=== PATIENT | female | born 1980 | race Caucasian/White ===

== ENCOUNTER → 2018-03-03 09:36 | Day surgery (SDC) | payer OTHER ==
[~2018-03-03 09:36] MED LIST: Buffered Lidocaine 0.9% SYRIN* 5 ML/SYR SYRINGE INTRADERM ONE; Buffered Lidocaine 0.9% SYRIN* 5 ML/SYR SYRINGE ONE; Bupivacaine 0.5%* 50 ML VIAL ONE; DOXYcycline IV* 100 MG in NS 0.9% 250 ML* 250 ML IVPB ONE; Dexamethasone IV* 4 MG/ML 1 ML (4 MG) ONE; Famotidine TAB* 20 MG ONE; Famotidine TAB* 20 MG PO ONE; Ketorolac INJ* 30 MG/ML 1 ML VIAL ONE; Lidocaine 1% INJ* 10 MG/ML 30 ML SDV ONE; Lidocaine 2% PF * 5 ML VIAL ONE; Metoclopramide TAB* 10 MG ONE; Metoclopramide TAB* 10 MG PO ONE; Midazolam* 1 MG/ML 5 ML VIAL (5 MG) ONE; Misoprostol TAB* 200 MCG ONE; Naloxone* 0.4 MG/ML 1 ML VIAL IV PRN; Ondansetron INJ* 2 MG/ML VIAL IV PRN; Ondansetron INJ* 2 MG/ML VIAL ONE; Propofol* 10 MG/ML 20 ML BTL IV PUSH ONE; fentaNYL* 50 MCG/ML 2 ML VIAL (100 MCG VIAL) IV PRN; fentaNYL* 50 MCG/ML 2 ML VIAL (100 MCG VIAL) ONE; oxyCODONE/Acetamin 5/325 MG* TAB PO PRN
[2018-03-03 12:04] LABS: ABS Basophils 0 10^3/ul (0-0.2); ABS Eosinophils 0 10^3/ul (0-0.6); ABS Lymphocytes 1.4 10^3/ul (1.0-4.8); ABS Monocytes 0.3 10^3/ul (0-0.8); ABS Nucleated RBC 0 10^3/ul; Eosinophil % 0.7 % (0-6); Hematocrit 35 % (35-47); Hemoglobin 12.6 g/dl (12.0-16.0); Lymphocyte % 24.1 % (25-47); Mean Corpuscular HGB Conc 36 g/dl (31-36); Mean Corpuscular Hemoglobin 33 pg (27-31); Mean Corpuscular Volume 94 fL (80-97); Mean Platelet Volume 8.1 um3 (7.4-10.4); Nucleated Red Blood Cells % 0; Platelet Count 137 10^3/ul (150-450); Red Blood Count 3.76 10^6/ul (4.0-5.4); Red Cell Distribution Width 13 % (10.5-15); White Blood Count 5.8 10^3/ul (3.5-10.8)
[2018-03-03 13:49] VITALS: BP 112/76
--- NOTE | 2018-03-03 22:57 | OP ---
DATE OF OPERATION: 03/03/18 - [facility] DATE OF : 82 SURGEON: Muriel Jefferson MD MANAGER PRINT: None. PRE-OP DIAGNOSIS: Missed at 9 weeks size. POST-OP DIAGNOSIS: Missed at 9 weeks size. OPERATIVE PROCEDURE: Suction, dilation and curettage. ESTIMATED BLOOD LOSS: Minimal. FLUIDS: Crystalloid. DRAINS: None. SPECIMEN: Products of conception. DESCRIPTION OF PROCEDURE: After informed consent was signed, the patient was taken to the operating room where she was given general anesthesia that was found to be adequate. She was prepped and draped in the dorsal lithotomy position in a candy cane stirrups. Her bladder had previously been drained of urine just prior to arriving in the OR. Two speculums were placed into the vagina to expose the cervix and the anterior lip of the cervix was grasped with a single-tooth tenaculum. The uterus was sounded to 9 cm and the cervix was gradually dilated until a size 10 curved suction cannula could be inserted. The suction device was assembled and turned on. The uterine contents were suctioned until the cavity decreased in size and a gritty texture was felt in all quadrants. The suction was then removed. There was minimal amount of bleeding. The patient was given 400 mcg of Cytotec and with bimanual massage, the uterus was firm and there was scant bleeding. The tenaculum was removed with good hemostasis and the speculums were removed. The patient was placed back into supine position, moved to the stretcher, and taken to the recovery room in stable condition. [id number]/CPS #: [id number] MTDD
== END | disposition home or self-care (01) ==
LOC: OR 09:36
PROVIDERS: ATTEND Obstetrics & Gynecology
DX: O02.1 Missed abortion (principal); F41.9 Anxiety disorder, unspecified; G43.909 Migraine, unspecified, not intractable, without status migrainosus
CPT/HCPCS: 36415; 85025; 86850; 86900; 86901; 88233; 88262; 88291; 88305; A9270-GY; J1100; J1885; J2250; J2405; J2704; J3010

== ENCOUNTER 2018-05-25 15:29 | Emergency (ER) | payer OTHER ==
[2018-05-25 16:31] LABS: ABS Basophils 0 10^3/ul (0-0.2); ABS Eosinophils 0.1 10^3/ul (0-0.6); ABS Monocytes 0.4 10^3/ul (0-0.8); ABS Neutrophils 5.6 10^3/ul (1.5-7.7); ABS Nucleated RBC 0 10^3/ul; Eosinophil % 1.1 % (0-6); Hematocrit 40 % (35-47); Hemoglobin 13.9 g/dl (12.0-16.0); Mean Corpuscular HGB Conc 35 g/dl (31-36); Mean Corpuscular Hemoglobin 33 pg (27-31); Mean Corpuscular Volume 95 fL (80-97); Mean Platelet Volume 8.6 um3 (7.4-10.4); Nucleated Red Blood Cells % 0; Platelet Count 195 10^3/ul (150-450); Red Blood Count 4.15 10^6/ul (4.00-5.40); Red Cell Distribution Width 12 % (10.5-15); White Blood Count 8.1 10^3/ul (3.5-10.8)
[2018-05-25 16:46] LABS: INR 0.9 (0.77-1.02)
[2018-05-25 16:47] LABS: EGFR Non-African American 96.3 (>60)
[2018-05-25 19:29] LABS: Urine Appearance Cloudy; Urine Blood 2+ (Negative); Urine Color Amber; Urine Ketones Trace (Negative); Urine Protein 2+(100 mg/dL) (Negative); Urine Red Blood Cell 3+(>10/hpf) (Absent); Urine Urobilinogen Negative (Negative); Urine White Blood Cell 3+(>20/hpf) (Absent)
--- NOTE | 2018-05-25 19:48 | ED ---
GI/ HPI - HPI Summary HPI Summary: Complains of heavy bright red vaginal bleeding with clots, bilateral lower abdominal cramping, increased urinary urge starting today. LMP 14 days ago. Patient started spotting 2 days after menstrual bleeding stopped, and spotting is progressed until heavy bleeding with clots started today. Denies fever, cough, sore throat, CP, SOB, N/V/D, vaginal discharge or pain, change in BM. Medical history is none. Abdominal/pelvic surgical history is none. Patient denies sexual activity since D&C 2 months ago. No control. Followed by [facility]. - History of Current Complaint Chief Complaint: EDVaginalBleeding Time Seen by Provider: 05/25/18 18:14 Stated Complaint: HEAVY VAGINAL BLEEDING Hx Obtained From: Patient Onset/Duration: Started Hours Ago, Started Days Ago Timing: Intermittent Severity: Mild Current Severity: Mild Vaginal Bleeding Description: Bright Red Pain Intensity: 2 Location of Pain: RLQ, LLQ, Suprapubic Pain Characteristics: Cramping Associated Signs and Symptoms: Positive: Abdominal Pain Additional Signs & Symptoms: Positive: Vaginal Bleeding, Miscarriage Aggravating Factor(s): Nothing Alleviating Factor(s): Nothing - Allergy/Home Medications Allergies/Adverse Reactions: Allergies Allergy/AdvReac Type Severity Reaction Status Date / Time No Known Allergies Allergy Verified 03/03/18 09:51 PMH/Surg Hx/FS Hx/Imm Hx Endocrine/Hematology History: Denies: Hx Anticoagulant Therapy, Hx Diabetes Cardiovascular History: Denies: Hx Cardiac Arrest, Hx Hypertension, Hx Pacemaker/ICD History: Denies: Hx Dialysis, Hx Renal Disease Sensory History: Denies: Hx Contacts or Glasses, Hx Hearing Aid Opthamlomology History: Denies: Hx Contacts or Glasses Neurological History: Reports: Hx Migraine - 3-4 PER YEAR- TX WITH EXCEDRIN Psychiatric History: Reports: Hx Anxiety - REPORTS SOME Denies: Hx Panic Disorder - Surgical History Surgery Procedure, Year, and Place: WISDOM TEETH EXTRACTION PATIENT STATES WITH GENERAL ANESTHESIA Hx Anesthesia Reactions: No - Immunization History Immunizations Up to Date: Yes Infectious Disease History: No Infectious Disease History: Denies: Traveled Outside the [place] in Last 30 Days - Social History Alcohol Use: Occasionally Substance Use Type: Reports: None Smoking Status (MU): Never Smoked Tobacco Review of Systems Constitutional: Negative Eyes: Negative ENT: Negative Cardiovascular: Negative Respiratory: Negative Positive: Abdominal Pain Positive: urgency, other Musculoskeletal: Negative Skin: Negative Neurological: Negative Psychological: Normal All Other Systems Reviewed And Are Negative: Yes Physical Exam Triage Information Reviewed: Yes Vital Signs On Initial Exam: Initial Vitals Temp Pulse Resp BP Pulse Ox 97.6 F 78 17 150/69 100 05/25/18 15:30 05/25/18 15:30 05/25/18 15:30 05/25/18 15:30 05/25/18 15:30 Vital Signs Reviewed: Yes Appearance: Positive: Well-Appearing Skin: Positive: Warm Head/Face: Positive: Normal Head/Face Inspection Eyes: Positive: Normal Neck: Positive: Supple Respiratory/Lung Sounds: Positive: Clear to Auscultation Cardiovascular: Positive: Normal Abdomen Description: Positive: Nontender Musculoskeletal: Positive: Normal Neurological: Positive: Normal Psychiatric: Positive: Normal AVPU Assessment: Alert - Alexi Coma Scale Best Eye Response: 4 - Spontaneous Best Motor Response: 6 - Obeys Commands Best Verbal Response: 5 - Oriented Coma Scale Total: 15 Diagnostics - Vital Signs Vital Signs Temp Pulse Resp BP Pulse Ox 05/25/18 15:30 97.6 F 78 17 150/69 100 - Laboratory Lab Results: Lab Results 05/25/18 05/25/18 05/25/18 Range/Units 16:18 16:18 16:18 WBC 8.1 (3.5-10.8) 10^3/ul RBC 4.15 (4.00-5.40) 10^6/ul Hgb 13.9 (12.0-16.0) g/dl Hct 40 (35-47) % MCV 95 (80-97) fL MCH 33 H (27-31) pg MCHC 35 (31-36) g/dl RDW 12 (10.5-15) % Plt Count 195 (150-450) 10^3/ul MPV 8.6 (7.4-10.4) um3 Neut % (Auto) 68.7 (38-83) % Lymph % (Auto) 25.0 (25-47) % Dunn % (Auto) 4.8 (0-7) % Eos % (Auto) 1.1 (0-6) % Baso % (Auto) 0.4 (0-2) % Absolute Neuts (auto) 5.6 (1.5-7.7) 10^3/ul Absolute Lymphs (auto) 2.0 (1.0-4.8) 10^3/ul Absolute Monos (auto) 0.4 (0-0.8) 10^3/ul Absolute Eos (auto) 0.1 (0-0.6) 10^3/ul Absolute Basos (auto) 0 (0-0.2) 10^3/ul Absolute Nucleated RBC 0 10^3/ul Nucleated RBC % 0 INR (Anticoag Therapy) 0.90 (0.77-1.02) APTT 32.1 (26.0-36.3) seconds Sodium 140 (135-145) mmol/L Potassium 3.7 (3.5-5.0) mmol/L Chloride 104 (101-111) mmol/L Carbon Dioxide 30 (22-32) mmol/L Anion Gap 6 (2-11) mmol/L BUN 8 (6-24) mg/dL Creatinine 0.69 (0.51-0.95) mg/dL Est GFR ( Amer) 116.5 (>60) Est GFR (Non-Af Amer) 96.3 (>60) BUN/Creatinine Ratio 11.6 (8-20) Glucose 98 (70-100) mg/dL Lactic Acid (0.5-2.0) mmol/L Calcium 9.3 (8.6-10.3) mg/dL Total Bilirubin 0.50 (0.2-1.0) mg/dL AST 17 (13-39) U/L ALT 28 (7-52) U/L Alkaline Phosphatase 68 (34-104) U/L Total Protein 6.8 (6.4-8.9) g/dL Albumin 4.5 (3.2-5.2) g/dL Globulin 2.3 (2-4) g/dL Albumin/Globulin Ratio 2.0 (1-3) Beta HCG, Quant 1.43 mIU/mL Urine Color Urine Appearance Urine pH (5-9) Ur Specific [place] (1.010-1.030) Urine Protein (Negative) Urine Ketones (Negative) Urine Blood (Negative) Urine Nitrate (Negative) Urine Bilirubin (Negative) Urine Urobilinogen (Negative) Ur Leukocyte Esterase (Negative) Urine WBC (Auto) (Absent) Urine RBC (Auto) (Absent) Urine Bacteria (Absent) Urine Glucose (Negative) 05/25/18 05/25/18 Range/Units 16:18 18:45 WBC (3.5-10.8) 10^3/ul RBC (4.00-5.40) 10^6/ul Hgb (12.0-16.0) g/dl Hct (35-47) % MCV (80-97) fL MCH (27-31) pg MCHC (31-36) g/dl RDW (10.5-15) % Plt Count (150-450) 10^3/ul MPV (7.4-10.4) um3 Neut % (Auto) (38-83) % Lymph % (Auto) (25-47) % Dunn % (Auto) (0-7) % Eos % (Auto) (0-6) % Baso % (Auto) (0-2) % Absolute Neuts (auto) (1.5-7.7) 10^3/ul Absolute Lymphs (auto) (1.0-4.8) 10^3/ul Absolute Monos (auto) (0-0.8) 10^3/ul Absolute Eos (auto) (0-0.6) 10^3/ul Absolute Basos (auto) (0-0.2) 10^3/ul Absolute Nucleated RBC 10^3/ul Nucleated RBC % INR (Anticoag Therapy) (0.77-1.02) APTT (26.0-36.3) seconds Sodium (135-145) mmol/L Potassium (3.5-5.0) mmol/L Chloride (101-111) mmol/L Carbon Dioxide (22-32) mmol/L Anion Gap (2-11) mmol/L BUN (6-24) mg/dL Creatinine (0.51-0.95) mg/dL Est GFR ( Amer) (>60) Est GFR (Non-Af Amer) (>60) BUN/Creatinine Ratio (8-20) Glucose (70-100) mg/dL Lactic Acid 1.1 (0.5-2.0) mmol/L Calcium (8.6-10.3) mg/dL Total Bilirubin (0.2-1.0) mg/dL AST (13-39) U/L ALT (7-52) U/L Alkaline Phosphatase (34-104) U/L Total Protein (6.4-8.9) g/dL Albumin (3.2-5.2) g/dL Globulin (2-4) g/dL Albumin/Globulin Ratio (1-3) Beta HCG, Quant mIU/mL Urine Color Koki Urine Appearance Cloudy Urine pH 6.0 (5-9) Ur Specific [place] 1.010 (1.010-1.030) Urine Protein 2+(100 mg/dl) A (Negative) Urine Ketones Trace A (Negative) Urine Blood 2+ A (Negative) Urine Nitrate Negative (Negative) Urine Bilirubin Negative (Negative) Urine Urobilinogen Negative (Negative) Ur Leukocyte Esterase Negative (Negative) Urine WBC (Auto) 3+(>20/hpf) A (Absent) Urine RBC (Auto) 3+(>10/hpf) A (Absent) Urine Bacteria Absent (Absent) Urine Glucose Negative (Negative) Result Diagrams: 05/25/18 16:18 05/25/18 16:18 Lab Statement: Any lab studies that have been ordered have been reviewed, and results considered in the medical decision making process. GIGU Course/Dx - Course Course Of Treatment: Complains of heavy bright red vaginal bleeding with clots, bilateral lower abdominal cramping, increased urinary urge starting today. LMP 14 days ago. Patient started spotting 2 days after menstrual bleeding stopped, and spotting is progressed until heavy bleeding with clots started today. Denies fever, cough, sore throat, CP, SOB, N/V/D, vaginal discharge or pain, change in BM. Medical history is none. Abdominal/pelvic surgical history is none. Patient denies sexual activity since D&C 2 months ago. No control. Followed by [facility]. Abdomen nontender. Discussed patient with with [facility] doctor Tello who was psychosocial rehabilitation counselor. H&H within normal limits. Dr. Javed recommended follow-up in the clinic, optional combo or progesterone only PO control to help control bleeding if patient desired. Patient states she and her have been trying to get up until D&C. Declined control at this time advise patient to follow up with her [facility], and to return for any new or worsening symptoms. patient understands and improves plan. - Diagnoses Provider Diagnoses: Dysfunctional uterine bleeding Discharge - Sign-Out/Discharge Documenting (check all that apply): Patient Departure - Discharge Plan Condition: Stable Disposition: HOME Patient Education Materials: Dysfunctional Uterine Bleeding (ED) Referrals: Johnna Amezcua MD [Primary Care Provider] - Additional Instructions: Follow-up with your PHOTO[facility] COPY MAKER Dr Veras. Return to the ED for any new or worsening symptoms - Billing Disposition and Condition Condition: STABLE Disposition: Home
[2018-05-25 20:01] VITALS: BP 122/60
== END 2018-05-25 20:00 | disposition home or self-care (01) ==
LOC: ED 15:29
DX: N93.8 Other specified abnormal uterine and vaginal bleeding (principal)
CPT/HCPCS: 36415; 80053; 81003; 81015; 83605; 84702; 85025; 85610; 85730; 87086; 99282

== ENCOUNTER 2018-05-31 09:53 | Emergency (ER) | payer OTHER ==
--- NOTE | 2018-05-31 10:11 | ED ---
- HPI Summary HPI Summary: A 37 y/o F presents to ED s/p miscarriage in March with c/o abd pressure onset a few days SLEEVER. Associated sx: vaginal discharge onset 5 days ago. Denies fever. Pt notes having a menstrual cycle approx 5 weeks after the D&C. She also had a heavy menstrual cycle starting on May 12 which lasted 2 weeks and prompted her to visit the ED last week. She was referred to her OB, Dr. Jefferson, who she is scheduled to see next week. She denies sexual activity since the miscarriage. Pt had an out-pt trans vag U/S completed today, which suggested products of conception could still be present, which prompted her visit today. Non-smoker. Occasional ETOH. This is scribe, Jp Espinosa, documenting for attending Dr. Juve Degroot MD. - History of Current Complaint Chief Complaint: EDOBProblems Stated Complaint: OB PROBLEM Time Seen by Provider: 05/31/18 10:06 Hx Obtained From: Patient Chief Complaint: Pain - abd "pressure" Onset/Duration: Started Days Ago, Still Present Timing: Constant Severity: Moderate Current Severity: Moderate Pain Intensity: 4 Associated Signs and Symptoms: Positive: Vaginal Bleeding or Discharge. Negative: Nausea - Allergies/Home Medications Allergies/Adverse Reactions: Allergies Allergy/AdvReac Type Severity Reaction Status Date / Time No Known Allergies Allergy Verified 05/31/18 10:14 PMH/Surg Hx/FS Hx/Imm Hx Previously Healthy: Yes Endocrine/Hematology History: Denies: Hx Anticoagulant Therapy, Hx Diabetes Cardiovascular History: Denies: Hx Cardiac Arrest, Hx Hypertension, Hx Pacemaker/ICD History: Denies: Hx Dialysis, Hx Renal Disease Sensory History: Denies: Hx Contacts or Glasses, Hx Hearing Aid Opthamlomology History: Denies: Hx Contacts or Glasses Neurological History: Reports: Hx Migraine - 3-4 PER YEAR- TX WITH EXCEDRIN Psychiatric History: Reports: Hx Anxiety - REPORTS SOME Denies: Hx Panic Disorder - Surgical History Surgery Procedure, Year, and Place: WISDOM TEETH EXTRACTION PATIENT STATES WITH GENERAL ANESTHESIA Hx Anesthesia Reactions: No Infectious Disease History: No Infectious Disease History: Denies: Traveled Outside the [place] in Last 30 Days - Family History Known Family History: Negative: Other - neg anaesthesia reaction - Social History Occupation: Employed Full-time Lives: With Family Alcohol Use: Occasionally Hx Substance Use: No Substance Use Type: Reports: None Hx Tobacco Use: No Smoking Status (MU): Never Smoked Tobacco Review of Systems Negative: Fever Positive: Abdominal Pain - "pressure" Positive: discharge - vaginal All Other Systems Reviewed And Are Negative: Yes Physical Exam - Summary Physical Exam Summary: Appearance: Well appearing, no pain distress Skin: warm, dry, reflects adequate perfusion Head/face: normal Eyes: EOMI, NORMAN ENT: normal Neck: supple, non-tender Respiratory: CTA, breath sounds present Cardiovascular: RRR, pulses symmetrical Abdomen: non-tender, soft, no mass Bowel Sounds: present Musculoskeletal: normal, strength/ROM intact Neuro: normal, sensory motor intact, A&Ox3 - Physical Exam Triage Information Reviewed: Yes Vital Signs Reviewed: Yes Diagnostics - Vital Signs Vital Signs Temp Pulse Resp BP Pulse Ox 05/31/18 09:54 99.4 F 89 16 138/68 100 - Laboratory Lab Statement: Any lab studies that have been ordered have been reviewed, and results considered in the medical decision making process. Re-Evaluation - Re-Evaluation 1 Re-Evaluation Time: 10:43 Change: Unchanged Comment: Discussing consults with pt and plans to f/u with OBGYN. Pt voiced understanding. Course/Dx - Course Course Of Treatment: Patient without bleeding here. I reviewed the ultrasound report with the radiologist who read it. He states that there is no vascularity to the debris in the endometrium. There is some vascularity surrounding this. I then discussed these results with the [facility] suction plate carrier cleaner. Given the fact that she is not bleeding and has had 2 menses since D&C he recommends no treatment at this time. She has scheduled follow-up with her OB/ CATEGORY ANALYST on Wednesday. She'll return for heavy bleeding fevers or other concerns. - Differential Diagnosis/HQI/PQRI: Other: - Retained products of conception, menstrual irregularity, menorrhagia - Diagnoses Provider Diagnoses: Menstrual irregularity - Provider Notifications Discussed Care Of Patient With: Kriss Palencia - Radiology Time Discussed With Above Provider: 10:16 Instructed by Provider To: Other - Discussing results of trans vag U/S completed SLEEVER at ED Discharge - Sign-Out/Discharge Documenting (check all that apply): Patient Departure - D/C home - Discharge Plan Condition: Stable Disposition: HOME Patient Education Materials: Menorrhagia (ED) Referrals: Johnna Amezcua MD [Primary Care Provider] - Muriel Jefferson MD [Medical Doctor] - Additional Instructions: Follow-up with [facility]IST as scheduled on Wednesday. Return with heavy bleeding, fevers, worse or other concerns. - Billing Disposition and Condition Condition: STABLE Disposition: Home Consult Consult: 1043: Consult with BARBER Mann U/S appears consistent with where pt is in her menstrual cycle. Pt should f/u with BARBER Wilson next week as scheduled.
--- OUTSIDE RECORDS SUMMARY | 2018-05-31 11:04 | XMS REPORT ---
:1980 External Reference #:[id number] Author Organization [employer] Address [address] [facility] [address] [place] [address] [place] [address] Phone [phone] Care Team Providers Name Role Phone Johnna Amezcua MD Primary Care Physician Unavailable Payers Type Date Identification Numbers Payment Provider Subscriber Commercial Effective: Policy Number: [id number] [employer] Mario Carver 2015 Group Number: [id number] [address] PayID: [id number] [place] [address] Medigap Part B Expires: 2016 Policy Number: BS Facets Mario Carver [id number] PayID: [id number] [address] [address] [place] [address] Problems Date Description Provider Status Onset: 08/01/2015 Recurrent herpes simplex labialis Johnna Amezcua M.D. 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 onset of outbreak Vitamin / Active Tablets OTC 1 by Unknown 0000 mouth every day unsure of dose Vestura 08/09/ Hx Tablets 3-0.02mg 28tabs 1 by mouth [facility] 2014 - every day ELIAZAR Walls 2015 Valacyclovir HCL 08/09/ Hx Tablets 500mg 30tabs 1 by mouth [facility] 2014 - every day ELIAZAR Walls 2015 Triamcinolone 07/03/ Hx Cream 0.1% 80unit apply thin 782.9 [facility] Acetonide 2015 - s film twice ELIAZAR Walls daily 2014 Multi Complete / Hx Capsules daily Unknown 0000 - 2017 Lysine / Hx Capsules 500mg 1 by mouth Unknown 0000 - every day 2017 Loryna / Hx Tablets 3-0.02mg 28tabs 1 by mouth Johnna 0000 - every day Goldie, M.D. 2017 Valtrex / Hx Tablets 500mg 30tabs 1 by mouth Johnna 0000 - every day Amezcua, M.D. 2015 Immunizations CPT Code Status Date Vaccine Lot # [id number] Given 08/01/2015 Tdap - Tetanus/Diptheria/Acellular Pertussis [id number] Refused 09/10/2016 Influenza Virus Vaccine, Quadrivalent, [place] , [place] Use [id number] Refused 09/10/2016 Influenza Virus Vaccine, Quadrivalent, Split, Preservative Free Vital Signs Date Vital Result Comment 05/26/2018 Height 63.5 inches 5'3.50" Weight 101.00 lb Heart Rate 78 /min BP Systolic Sitting 100 mmHg BP Diastolic Sitting 70 mmHg O2 % BldC Oximetry 98 % BMI (Body Mass Index) 17.6 kg/m2 09/10/2016 Height 63.5 inches 5'3.50" Weight 103.00 lb Heart Rate 60 /min BP Systolic Sitting 98 mmHg BP Diastolic Sitting 70 mmHg Body Temperature 98.0 F BMI (Body Mass Index) 18.0 kg/m2 07/15/2016 Height 63.5 inches 5'3.50" Weight 100.00 lb Pain Level 0 BMI (Body Mass Index) 17.4 kg/m2 06/17/2016 Height 63.5 inches 5'3.50" Weight 100.00 lb BP Systolic 99 mmHg BP Diastolic 60 mmHg Pain Level 2 BMI (Body Mass Index) 17.4 kg/m2 08/01/2015 Height 63.5 inches 5'3.50" Weight 99.00 lb Heart Rate 57 /min BP Systolic Sitting 105 mmHg BP Diastolic Sitting 66 mmHg Body Temperature 97.9 F BMI (Body Mass Index) 17.3 kg/m2 07/03/2015 Height 62.75 inches 5'2.75" Weight 99.50 lb Heart Rate 66 /min BP Systolic Sitting 110 mmHg BP Diastolic Sitting 70 mmHg Body Temperature 98.2 F O2 % BldC Oximetry 99 % BMI (Body Mass Index) 17.8 kg/m2 Results Test Date Test Result H/L Range Note CBC Auto Diff 05/25/2018 White Blood Count 8.1 10^3/uL 3.5-10.8 Red Blood Count 4.15 10^6/uL 4.00-5.40 Hemoglobin 13.9 g/dL 12.0-16.0 Hematocrit 40 % 35-47 Mean Corpuscular Volume 95 fL 80-97 Mean Corpuscular Hemoglobin 33 pg High 27-31 Mean Corpuscular HGB Conc 35 g/dL 31-36 Red Cell Distribution Width 12 % 10.5-15 Platelet Count 195 10^3/uL 150-450 Mean Platelet Volume 8.6 um3 7.4-10.4 Abs Neutrophils 5.6 10^3/uL 1.5-7.7 Abs Lymphocytes 2.0 10^3/uL 1.0-4.8 Abs Monocytes 0.4 10^3/uL 0-0.8 Abs Eosinophils 0.1 10^3/uL 0-0.6 Abs Basophils 0 10^3/uL 0-0.2 Abs Nucleated RBC 0 10^3/uL Granulocyte % 68.7 % 38-83 Lymphocyte % 25.0 % 25-47 Monocyte % 4.8 % 0-7 Eosinophil % 1.1 % 0-6 Basophil % 0.4 % 0-2 Nucleated Red Blood Cells % 0 Inr/Protime 05/25/2018 Inr 0.90 0.77-1.02 Laboratory test finding 05/25/2018 Partial Thrombo Time 32.1 seconds 26.0 -36.3 PTT Comp Metabolic Panel 05/25/2018 Sodium 140 mmol/L 135-145 Potassium 3.7 mmol/L 3.5-5.0 Chloride 104 mmol/L 101-111 Co2 Carbon Dioxide 30 mmol/L 22-32 Anion Gap 6 mmol/L 2-11 Glucose 98 mg/dL 70-100 Blood Urea Nitrogen 8 mg/dL 6-24 Creatinine 0.69 mg/dL 0.51-0.95 BUN/Creatinine Ratio 11.6 8-20 Calcium 9.3 mg/dL 8.6-10.3 Total Protein 6.8 g/dL 6.4-8.9 Albumin 4.5 g/dL 3.2-5.2 Globulin 2.3 g/dL 2-4 Albumin/Globulin Ratio 2.0 1-3 Total Bilirubin 0.50 mg/dL 0.2-1.0 Alkaline Phosphatase 68 U/L 34-104 Alt 28 U/L 7-52 Ast 17 U/L 13-39 Egfr Non- 96.3 >60 Egfr 116.5 >60 1 Laboratory test finding 05/25/2018 Lactic Acid 1.1 mmol/L 0.5-2.0 2 HCG 1.43 mIU/mL 3 Urinalysis Profile 05/25/2018 Urine Color Koki Urine Appearance Cloudy Urine Specific [place] 1.010 1.010-1.030 Urine pH 6.0 5-9 Urine Urobilinogen Negative Negative Urine Ketones Trace Negative Urine Protein 2+(100 mg/dL) Negative Urine Leukocytes Negative Negative Urine Blood 2+ Negative Urine Nitrite Negative Negative Urine Bilirubin Negative Negative Urine Glucose Negative Negative Urine White Blood Cell 3+(>20/hpf) Absent Urine Red Blood Cell 3+(>10/hpf) Absent Urine Bacteria Absent Absent CBC Auto Diff 03/03/2018 White Blood Count 5.8 10^3/uL 3.5-10.8 Red Blood Count 3.76 10^6/uL Low 4.0-5.4 Hemoglobin 12.6 g/dL 12.0-16.0 Hematocrit 35 % 35-47 Mean Corpuscular Volume 94 fL 80-97 Mean Corpuscular Hemoglobin 33 pg High 27-31 Mean Corpuscular HGB Conc 36 g/dL 31-36 Red Cell Distribution Width 13 % 10.5-15 Platelet Count 137 10^3/uL Low 150-450 Mean Platelet Volume 8.1 um3 7.4-10.4 Abs Neutrophils 4.0 10^3/uL 1.5-7.7 Abs Lymphocytes 1.4 10^3/uL 1.0-4.8 Abs Monocytes 0.3 10^3/uL 0-0.8 Abs Eosinophils 0 10^3/uL 0-0.6 Abs Basophils 0 10^3/uL 0-0.2 Abs Nucleated RBC 0 10^3/uL Granulocyte % 68.8 % 38-83 Lymphocyte % 24.1 % Low 25-47 Monocyte % 5.8 % 0-7 Eosinophil % 0.7 % 0-6 Basophil % 0.6 % 0-2 Nucleated Red Blood Cells % 0 Type & Screen 03/03/2018 Patient Blood Type O Positive Antibody Screen NEGATIVE Comp Metabolic Panel 03/05/2017 Sodium 138 mmol/L 133-145 Potassium 4.1 mmol/L 3.5-5.0 Chloride 105 mmol/L 101-111 Co2 Carbon Dioxide 27 mmol/L 22-32 Anion Gap 6 mmol/L 2-11 Glucose 79 mg/dL 70-100 Blood Urea Nitrogen 13 mg/dL 6-24 Creatinine 0.87 mg/dL 0.51-0.95 BUN/Creatinine Ratio 14.9 8-20 Calcium 9.0 mg/dL 8.6-10.3 Total Protein 6.1 g/dL Low 6.4-8.9 Albumin 3.8 g/dL 3.2-5.2 Globulin 2.3 g/dL 2-4 Albumin/Globulin Ratio 1.7 1-3 Total Bilirubin 0.60 mg/dL 0.2-1.0 Alkaline Phosphatase 42 U/L 34-104 Alt 15 U/L 7-52 Ast 15 U/L 13-39 Egfr Non- 74.1 >60 Egfr 95.3 >60 4 Lipid Profile (Trig/Chol/HDL) 03/05/2017 Triglycerides 49 mg/dL 5 Cholesterol 189 mg/dL 6 HDL Cholesterol 89.5 mg/dL 7 LDL Cholesterol 90 mg/dL 8 Laboratory test finding 08/01/2015 Cytology SEE RESULT BELOW 9 HPV Rna Ww/Reflex Genotype Negative Negative 10 1 Because ethnic data is not always readily available, this report includes an eGFR for both -Americans and non- Americans. The National Kidney Disease Education Program (NKDEP) does not endorse the use of the MDRD equation for patients that are not between the ages of 18 and 70, are , have extremes of body size, muscle mass, or nutritional status, or are non- or non-. According to the National Kidney Foundation, irrespective of diagnosis, the stage of the disease is based on the level of kidney function: Stage Description GFR(mL/min/1.73 m(2)) 1 Kidney damage with normal or decreased GFR 90 2 Kidney damage with mild decrease in GFR 60-89 3 Moderate decrease in GFR 30-59 4 Severe decrease in GFR 15-29 5 Kidney failure <15 (or dialysis) 2 [facility] Severe Sepsis and Septic Shock Management Bundle Measure requires all lactic acids initially measuring >2.0 mmol/L be repeated. 3 <5.0 Negative 5.0 - 25.0 Indeterminate (Repeat testing recommended after 72 hours) >25.0 Positive Perimenopausal women can display HCG levels of up to 20 mIU/mL 4 Because ethnic data is not always readily available, this report includes an eGFR for both -Americans and non- Americans. The National Kidney Disease Education Program (NKDEP) does not endorse the use of the MDRD equation for patients that are not between the ages of 18 and 70, are , have extremes of body size, muscle mass, or nutritional status, or are non- or non-. According to the National Kidney Foundation, irrespective of diagnosis, the stage of the disease is based on the level of kidney function: Stage Description GFR(mL/min/1.73 m(2)) 1 Kidney damage with normal or decreased GFR 90 2 Kidney damage with mild decrease in GFR 60-89 3 Moderate decrease in GFR 30-59 4 Severe decrease in GFR 15-29 5 Kidney failure <15 (or dialysis) 5 Desirable <150 Borderline high 150-199 High 200-499 Very High >500 6 Desirable <200 Borderline high 200-239 High >239 7 Low <40 Desirable: 40-60 High: >60 8 Desirable: <100 mg/dL Near Optimal: 100-129 mg/dL Borderline High: 130-159 mg/dL High: 160-189 mg/dL Very High: >189 mg/dL 9 SEE RESULT BELOW Name: MARIO CARVER : [address]: Johnna Amezcua MD Acct: [id number] Unit: [id number] AGE: 34 Location: [facility] Re08/01/15 SEX: F Status: REG REF SPEC: [id number] [place]: 08/01/[address] [facility] [address]: Johnna Amezcua MD REQ: [id number] RECD: 08/01/15 STATUS: SOUT _ ORDERED: IMAGE ANALYSIS, HPV/Thin Prep, HPV 16/18 GENE FINAL DIAGNOSIS Negative for Intraepithelial lesion or Malignancy A. Ectocervical/Endocervical Specimen Adequacy: Satisfactory of evaluation Transformation zone component identified Patient Information: HPV: High risk HPV RNA testing regardless of pap results. HPV 16/18 Genotype for HPV pos Actual Specimen Date: 08/01/15 Last Menstrual Date: 07/18/15 Previous Abnormal Pap Smears?:N Date Time Test Result Flag (u) Normal Range 08/01/15 1008 HPV RNA RFLX GE Negative Negative The high-risk HPV types detected by the assay include: 16, 18, 31, 33, 35, 39, 45, 51, 52, 56, 58, 59, 66, and 68. Signed (signature on file) Karmen Fer 08/02/15 1317 This Pap test was evaluated with the assistance of the GarmorPrep Test Imaging System. Due to cytologic findings at the safety deposit clerk microscope, comprehensive manual rescreening by a Seat Coverer may be required. The Pap Smear is a screening test designed to aid in the detection of premalignant and malignant conditions of the uterine cervix. It is not a diagnostic procedure and should not be used as the sole means of detecting cervical cancer. Both false- positive and false- negative reports do occur. Depending on your risk status, a Pap smear should be obtained and evaluated every 1-3 years. END OF REPORT * ML=Testing performed at Main Lab DEPARTMENT OF PATHOLOGY, [address] [place] [address] Shadi Hurst M.D. Director [facility] # [id number] 10 The high-risk HPV types detected by the assay include: 16, 18, 31, 33, 35, 39, 45, 51, 52, 56, 58, 59, 66, and 68. Procedures Date CPT Code Description Status 04/07/2017 10436 Admin & Interp Of Health Risk Assessment w/ Patient Completed Encounters Type Date Location Provider CPT E/M Dx Office Visit 04/07/2017 [facility] Internal Medicine Johnna Amezcua M.D. 22733 Z00.00 8:50a - Niurka R39.89 Office Visit 09/10/2016 8:50a [facility] Internal Medicine Johnna Amezcua M.D. 04821 B00.9 - Niurka Z79.899 Office Visit 07/15/2016 9:30a [facility] M.D. 97897 S76.301A C.M.A. M17.11 Office Visit 06/17/2016 2:00p [facility] M.D. 30881 M23.000 C.M.A. Office Visit 08/01/2015 9:10a [facility] Internal Medicine Johnna Amezcua, 91697 Z00.00 - Obinna Souza Z13.220 Z13.1 Z12.4 Z12.83 Z23 Office Visit 07/03/2015 1:40p [facility] [place] [address] 782.9 Obinna Plan of Care 05/26/2018 - Johnna Amezcua M.D.N92.0 Excessive and frequent menstruation with regular cycleNew Xrays:US Transvaginal
[2018-05-31 11:12] VITALS: BP 107/64
== END 2018-05-31 11:11 | disposition home or self-care (01) ==
LOC: ED 09:53
DX: N92.6 Irregular menstruation, unspecified (principal); Z87.59 Personal history of other complications of pregnancy, childbirth and the puerperium
CPT/HCPCS: 99282

== ENCOUNTER 2018-06-08 08:49 | Day surgery (SDC) | payer OTHER ==
[~2018-06-08 08:49] MED LIST changes: -Buffered Lidocaine 0.9% SYRIN* 5 ML/SYR SYRINGE ONE; -Bupivacaine 0.5%* 50 ML VIAL ONE; -DOXYcycline IV* 100 MG in NS 0.9% 250 ML* 250 ML IVPB ONE; -Dexamethasone IV* 4 MG/ML 1 ML (4 MG) ONE; +Famotidine IV* 10 MG/ML 2 ML (20 mg) IV ONE; -Famotidine TAB* 20 MG ONE; -Famotidine TAB* 20 MG PO ONE; -Ketorolac INJ* 30 MG/ML 1 ML VIAL ONE; -Lidocaine 1% INJ* 10 MG/ML 30 ML SDV ONE; -Lidocaine 2% PF * 5 ML VIAL ONE; -Metoclopramide TAB* 10 MG ONE; -Metoclopramide TAB* 10 MG PO ONE; -Midazolam* 1 MG/ML 5 ML VIAL (5 MG) ONE; -Misoprostol TAB* 200 MCG ONE; -Naloxone* 0.4 MG/ML 1 ML VIAL IV PRN; -Ondansetron INJ* 2 MG/ML VIAL IV PRN; -Ondansetron INJ* 2 MG/ML VIAL ONE; -Propofol* 10 MG/ML 20 ML BTL IV PUSH ONE; -fentaNYL* 50 MCG/ML 2 ML VIAL (100 MCG VIAL) IV PRN; -fentaNYL* 50 MCG/ML 2 ML VIAL (100 MCG VIAL) ONE; -oxyCODONE/Acetamin 5/325 MG* TAB PO PRN
[2018-06-08] MEDS ORDERED: Famotidine IV* 10 MG/ML 2 ML (20 mg) ONE (08:57)
[2018-06-08] MEDS ORDERED: DOXYcycline IV* 100 MG in NS 0.9% 250 ML* 250 ML IVPB ONE (09:00)
[2018-06-08] MEDS ORDERED: Lidocaine 1%* 5 ML VIAL ONE ×2 (09:51)
[2018-06-08] MEDS ORDERED: fentaNYL* 50 MCG/ML 2 ML VIAL (100 MCG VIAL) ONE (10:05)
[2018-06-08] MEDS ORDERED: Midazolam* 1 MG/ML 5 ML VIAL (5 MG) ONE (10:05)
[2018-06-08] MEDS ORDERED: Lidocaine 2% PF * 5 ML VIAL ONE (10:09)
[2018-06-08] MEDS ORDERED: Ondansetron INJ* 2 MG/ML VIAL ONE (10:09)
[2018-06-08] MEDS ORDERED: Ketorolac INJ* 30 MG/ML 1 ML VIAL ONE (10:09)
[2018-06-08] MEDS ORDERED: Chloroprocaine 2%* 20 ML VIAL ONE (10:09)
[2018-06-08] MEDS ORDERED: Propofol* 10 MG/ML 20 ML BTL IV PUSH ONE (10:09)
[2018-06-08] MEDS ORDERED: Silver Nitrate/Potassium Nitr* 1 EA STICK ONE (10:57)
[2018-06-08 11:47] VITALS: BP 105/73
--- NOTE | 2018-06-08 23:00 | OP ---
DATE OF OPERATION: 06/08/18 - [facility] DATE OF : [birth year] SURGEON: Muriel Jefferson MD ANESTHESIA: Spinal. PRE-OP DIAGNOSIS: Retained products of conception. POST-OP DIAGNOSIS: Retained products of conception. OPERATIVE PROCEDURE: Hysteroscopy, D and C. ESTIMATED BLOOD LOSS: Minimal. FLUIDS: Crystalloid. FINDINGS: Small uterus with a very small area of suspected retained products of conception. Endometrium normal appearing otherwise. COMPLICATIONS: None. DRAINS: Bladder was already empty of urine prior to procedure. DESCRIPTION OF PROCEDURE: After informed consent was signed, the patient was taken to the operating room where she was given spinal anesthesia that was found to be adequate. She was prepped and draped in the dorsal lithotomy position in the [facility]. Two speculums were placed into her vagina to expose the cervix and the anterior lip of the cervix was grasped with a single-tooth tenaculum. The cervix was easily dilated until the hysteroscope could be inserted. The uterus was sounded at 7.5 cm. The hysteroscope was assembled and inserted and the uterine cavity was visualized. A very small area of darkened tissue was noted in the right anterior lower portion of the uterus. The cavity appeared normal otherwise with a moderate amount of endometrial tissue. The hysteroscope was removed and sharp curettage was used to remove the portion of abnormal-appearing tissue as well as doing a curettage of the entire endometrial cavity until gritty texture was felt. Minimal bleeding was noted throughout the procedure. The tenaculum was then removed and good hemostasis was achieved with silver nitrate. Very minimal bleeding was noted. Specimen was sent for inspection with pathology. The patient was then cleaned up, placed back in supine position, awakened from anesthesia, and moved to the recovery room in stable condition. [id number]/CPS #: [id number] MTDD
== END 2018-06-08 12:25 | disposition home or self-care (01) ==
LOC: OR 08:49
PROVIDERS: ATTEND Obstetrics & Gynecology
DX: O03.1 Delayed or excessive hemorrhage following incomplete spontaneous abortion (principal); G43.909 Migraine, unspecified, not intractable, without status migrainosus
CPT/HCPCS: 36415; 86850; 86900; 86901; 88305; A9270-GY; J1885; J2250; J2400; J2405; J2704; J3010

== ENCOUNTER 2019-10-14 00:56 | Inpatient (IN) | payer OTHER ==
[2019-10-13] MEDS: Penicillin G Potassium IV* 3,000,000 UNITS in NS 0.9% 100 ML* 100 ML IVPB SCH (12:00)
[2019-10-14] MEDS ORDERED: Lactated Ringers 1000 ML Bag* 1,000 ML IV ONE (02:06)
[2019-10-14] MEDS ORDERED: Buffered Lidocaine 1% SYRIN* 1 ML/SYRINGE INTRADERM ONE (02:06)
[2019-10-14] MEDS ORDERED: Nalbuphine* 10 MG/ML 1 ML VIAL IV PRN (02:06)
[2019-10-14] MEDS ORDERED: Promethazine INJ(RESTRICTED)* 25 MG/ML 1 ML VIAL IV PRN (02:06)
--- NOTE | 2019-10-14 02:22 | HP ---
General Information - Reason for Visit Patient reports she "felt a pop" and had a gush of clear fluid. Has been having somewhat irregular ctx. - General Information Maternal Age: 38 Grav: 2 Para: 0 SAB: 1 IEA: 0 Estimated Due Date: 10/04/19 Determined By: IVF Maternal Blood Type and Rh: O Positive - Results this Serology/RPR Result: Non-Reactive Rubella Result: Immune HBsAg Result: Negative HIV Result: Negative GBS Culture Result: Positive Past Medical History Delivery History: See Records - No previous deliveries Pertinent Past Medical History: See Records Past Medical History Comment: Anxiety Migraine cold sores Pertinent Past Surgical History: See Records Past Surgical History Comment: D&C x2 03/2018, 06/2018 for retained POC Pertinent Family History: See Records Family History Comment: hypercholesteremia Diabetes Aneurysm dementia - Antepartal Records Antepartal Records: Reviewed, Complicated by: - AMA, GBS positive Review of Systems Constitutional: Uncomfortable CV Complaint: No Respiratory: Shortness of Breath: No Gastrointestinal: Nausea, Soft Stool Genitourinary: Bleeding, Leaking Fluid, No Dysuria Musculoskeletal: Back Pain, Contractions, Abdominal Pain - Sharp pain along left side of abdomen in some positions or with contractions Neurological: No Headache, No Visual Changes Movement: Normal Exam Allergies/Adverse Reactions: Allergies No Known Allergies Allergy (Verified 06/08/18 09:01) BP 133/72 T 98.4 HR 73 RR 16 O2 99 - Measurements Height: 5 ft 2.75 in Weight: 129 lb Body Mass Index (BMI): 23.0 Pre- Weight: 100 lb - Exam Breast: Breast Exam Deferred CVA: No CVA Tenderness Extremities: No Edema Heart: Normal Rhythm/Heart Sounds HEENT: No Significant Findings Lungs: Clear Bilaterally Rectal: Rectal Exam Deferred Reflexes: DTR 2+, - - no clonus Thyroid: - - WNL @ entry to care - Abdominal Exam Abdomen Exam: Non-Tender, Fundal Height Consistent with Dates - Ultrasound/Biophysical Profile Ultrasound Status: Not Done Targeted Exam Findings See L&D Outpatient Visit Provider Note for Findings: Yes Estimated Weight: 6.5lb Cervical Exam: 5cm Effacement: 100% Station: 0 Presenting Part: Vertex Membrane Status: SROM - Bulging bag on exam but gross rupture, suggests high leak Amniotic Fluid Evaluation: Gross Rupture Bleeding/Discharge: Bloody Show EFM Findings - External Monitor Findings Baseline Heart Rate: 135 External Monitor Findings: Accelerations Present, No Pattern of Variable or Late Decelerations, Variability Moderate Contractions: Irregular, Moderate, 45-90 Seconds Contraction Frequency: Q 5-6 min Assessment/Plan - Assessment IUP @ 41+3 weeks gestation. Gross rupture of membranes. No evidence acidemia - Obstetrical Risk Factors Obstetrical Risk Factors: GBS Positive - Plan Plan: Admit - Anticipate Vaginal Delivery Plan Comment: PARQ discussion nubain/phenergan for therapeutic rest if desired; patient in agreement. She would also like to try tub first. We also reviewed GBS prophylaxis and will initiate IV and start abx. Hoping to avoid epidural but would like to try nitrous when labor stronger. Anticipate SVB. - Date/Time of Admission Date of Admission: 10/14/19 Time of Admission: 01:54
[2019-10-14] MEDS ORDERED: Penicillin G Potassium IV* 5,000,000 UNITS in NS 0.9% 100 ML* 100 ML IVPB ONE (03:00)
[2019-10-14] MEDS ORDERED: Lactated Ringers 1000 ML Bag* 1,000 ML IV SCH (03:00)
[2019-10-14 03:57] LABS: Hematocrit 36 % (35-47); Hemoglobin 12.7 g/dL (12.0-16.0); Mean Corpuscular HGB Conc 35 g/dL (31-36); Mean Corpuscular Hemoglobin 34 pg (27-31); Mean Corpuscular Volume 96 fL (80-97); Red Blood Count 3.72 10^6 /uL (3.70-4.87); Red Cell Distribution Width 13 % (10-15)
[2019-10-14 04:22] LABS: ABS Lymphocytes 1.2 10^3/ul (1.0-4.8); ABS Monocytes 0.6 10^3/ul (0-0.8); ABS Neutrophils 8.1 10^3/ul (1.5-7.7); Eosinophil % 0.1 %; Lymphocyte % 12.4 %; Mean Platelet Volume 10.7 fL (7.4-10.4); Platelet Count 96 10^3/uL (150-450)
[2019-10-14] MEDS ORDERED: Penicillin G Potassium IV* 2,500,000 UNITS in NS 0.9% 100 ML* 100 ML IVPB SCH ×2 (07:00→07:30)
[2019-10-14] MEDS ORDERED: Penicillin G Potassium IV* 3,000,000 UNITS in NS 0.9% 100 ML* 100 ML IVPB SCH (07:00)
[2019-10-14] MEDS: Penicillin G Potassium IV* 3,000,000 UNITS in NS 0.9% 100 ML* 100 ML IVPB SCH ×4 (08:00→20:03)
--- NOTE | 2019-10-14 09:07 | PN ---
Progress Note - Progress Note Date of Service: 10/14/19 SOAP: Subjective: Pt sleeping in bed. at bedside. Objective: FHR: Baseline 135/ moderate variability/ + accels/ no decels UCs: irregular Temp: 100.0 (pt sleeping in warm room with lots of blankets) BP: 137/78 Platelets: 96 Assessment: Pt does not appear to be in active labor. Low platelets noted. Temp mildly elevated. BP mildly elevated. Plan: Cervical exam deferred while pt is sleeping. Will check CMP, uric acid due to low platelets, mildly elevated BP. Will let pt sleep for a bit longer then discuss augmentation with her.
--- NOTE | 2019-10-14 10:05 | PN ---
Progress Note - Progress Note Date of Service: 10/14/19 SOAP: Subjective: Pt awake, feeling ctx starting again. Pt reports feeling a little "out of it" still from the nubain and phenergan, not fond of the feeling and hoping it will wear off soon. Eating breakfast, at bedside. Objective: FHR: 140 per doppler Temp: 99.4 CMP, uric acid WNL. Assessment: Pt afebrile. May be getting more uncomfortable. No evidence of acidemia or chorioamnionitis. Plan: Discussed options with pt including augmentation of labor vs expectant management. Pt with strong preference for expectant management at this time. Advised reasonable.
[2019-10-14 10:13] LABS: Albumin 3.6 g/dL (3.2-5.2); Albumin/Globulin Ratio 1.3 (1-3); BUN/Creatinine Ratio 14.3 (8-20); Calcium 8.9 mg/dL (8.6-10.3); EGFR African American 92.3 (>60); EGFR Non-African American 76.3 (>60); Globulin 2.7 g/dL (2-4); Potassium 4.4 mmol/L (3.5-5.0); Total Bilirubin 0.4 mg/dL (0.2-1.0); Total Protein 6.3 g/dL (6.4-8.9); Uric Acid 5.5 mg/dL (2.3-6.6)
[2019-10-14 11:01] LABS: Hepatitis B Surface Antigen Nonreactive (Nonreactive)
[2019-10-14 11:08] LABS: Urine Appearance Clear; Urine Bilirubin Negative (Negative); Urine Blood 2+ (Negative); Urine Color Yellow; Urine Glucose Negative (Negative); Urine Ketones 1+ (Negative); Urine Nitrite Negative (Negative); Urine Protein Negative (Negative); Urine Urobilinogen Negative (Negative)
[2019-10-14 11:18] LABS: Urine Bacteria 1+ (Absent); Urine Red Blood Cell 3+(>10/hpf) (Absent); Urine Squamous Epithelial Cell Present (Absent); Urine White Blood Cell 2+(11-20/hpf) (Absent)
--- NOTE | 2019-10-14 11:32 | PN ---
Progress Note - Progress Note Date of Service: 10/14/19 SOAP: Subjective: Pt reports ctx still mild. Coping well. at bedside. Alternating between hands and knees, sitting on ball and standing. Objective: FHR: 145, moderate variability/ + accels/ no decels UCs: mild, irregular Temp: 9.4 Assessment: Pt does not appear to be in active labor. No evidence of acidemia or chorioamnionitis. Plan: Advised may need to consider augmentation of labor due to PROM. Pt prefers to wait for now, but may be open to Pitocin augmentation if no onset active labor in the next few hours.
[2019-10-14 11:39] LABS: Urine Benzodiazepine Screen None Detected (None Detect); Urine Opiates Screen None Detected (None Detect)
--- NOTE | 2019-10-14 14:34 | PN ---
Progress Note - Progress Note Date of Service: 10/14/19 SOAP: Subjective: Pt reports ctx increasing in intensity. Reports return of left sided pain, which extends from flank to front of abdomen, worse with ctx. Alleviated by hands and knees position, as well as abdominal lifting. Objective: FHR: Baseline 140/ moderate variability/ + accels/ no decels UCs: 7-9 minutes, mild to moderate Temp: 99.8 BP: 138/82 Assessment: Pt does not yet appear to be in active labor. No evidence of chorioamnionitis or acidemia. Plan: Recommend augmentation of labor with Pitocin at this time, as we are now 15 hours post SROM. Pt continues to decline augmentation, may be open to it in a couple hours.
--- NOTE | 2019-10-14 16:31 | PN ---
Progress Note - Progress Note Date of Service: 10/14/19 SOAP: Subjective: Pt reports ctx still about the same frequency, intensity. Has found it to be helpful when her does abdominal lifting with sheet for coping with the continued flank/ abdominal cramp/ pain. Objective: Cervix: 6cm/ 100%/ 0 station/ vtx FHR: Baseline 135/ + accels/ no decels/ moderate variability UCs: 5-8 minutes BP: 147/ 74 Temp: 99.8 Assessment: Pt has made some change but is still not in active labor. BP continues to be mildly elevated, but labs WNL other than platelet count, and negative proteinuria, consistent with possible gestational HTN vs stress of labor. No evidence of acidemia or chorioamnionitis. Plan: Again recommended augmentation to pt. Cervical exam done, which showed some change, as well as bulging bag of samuel. Discussed risks and benefits of amniotomy vs Pitocin for augmentation of labor. Pt prefers amniotomy as she has a strong preference to avoid continuous EFM if possible due to discomfort. Amniotomy performed to clear, pink-tinged fluid. Will continue to monitor, consider Pitocin augmentation if labor does not continue to progress.
--- NOTE | 2019-10-14 17:46 | PN ---
Progress Note - Progress Note Date of Service: 10/14/19 SOAP: Subjective: Pt reports back pain in between and during ctx. Has been doing deep kneeling lunges. Now lying on her right side in bed. at bedside, doing back massage, counter pressure. Objective: Temp: 99.9 FHR: Baseline 140/ moderate variability/ + accels/ no decels Ctx: every 6 minutes, moderate to strong Thin meconium stained fluid Assessment: Pt still does not appear to be in active labor, although ctx are feeling stronger to her. Meconium stained fluid, but baby is 41 3/7 weeks gestation, so not an abnormal finding. Temp has gone down following administration of fluid bolus. Plan: Consider Pitocin augmentation if labor pattern does not increase in frequency. Continue to monitor temp, FHR, labor pattern.
--- NOTE | 2019-10-14 19:09 | PN ---
Progress Note - Progress Note Date of Service: 10/14/19 SOAP: Subjective: Pt coping well with strong, frequent ctx. Reports some increased pressure, and an urge to push with the top of the ctx. Objective: FHR: 135 per doppler with good variability, auscultated before, during and after ctx UCs: 2-3 minutes Temp: 99.9 Assessment: Pt now in active labor. No evidence of acidemia or chorioamnionitis. Plan: Anticipate progression to .
--- NOTE | 2019-10-14 20:56 | PN ---
Progress Note - Progress Note Date of Service: 10/14/19 SOAP: Subjective: Pt reports strong ctx. Tired but coping well. Objective: Cervix: 7-8 cm/ 100%/ 0 station/ vtx FHR: 140 per doppler, moderate variability UCs: 3 minutes Temp: 99.2 Assessment: Pt making steady progress, although fatigued. No evidence of chorioamnionitis or acidemia. Plan: Encourage restful positions. Can try tub, nitrous oxide if desired. Anticipate progression to full dilation, .
--- NOTE | 2019-10-14 22:35 | PN ---
Progress Note - Progress Note Date of Service: 10/14/19 SOAP: Subjective: Pt uncomfortable, fatigued but coping. Did the tub for a while, now in the bed on knees, leaning on back of bed, supported by pillows. Objective: FHR: 135 auscultated through ctx UCs: 2-4 minutes Temp: 99.2 BP: 148/75 Assessment: No evidence of acidemia or chorioamnionitis. Plan: Will recheck in a little while. Consider epidural and/ or Pitocin if needed.
--- NOTE | 2019-10-14 23:28 | PN ---
Progress Note - Progress Note Date of Service: 10/14/19 Note: Pt reports more pressure, urge to push. Fatigued but coping well. Cervix 9cm/ 100%/ +1 station. FHR 140 per doppler. UC2 3-4 minutes. Impression: no evidence of acidemia or chorioamnionitis, making progress but slowly, fatigued. Discussed options for plan of care at this point, including continued expectant management, forms of pain relief, augmentation. Pt would like to try nitrous oxide. Declines augmentation. Doing D5LR for IV fluid.
--- NOTE | 2019-10-15 01:05 | PN ---
Progress Note - Progress Note Date of Service: 10/15/19 SOAP: Subjective: Pt lying on left side, using nitrous oxide. Coping well with ctx. Feels nitrous is helping somewhat, at least helping her relax in between ctx. Objective: Cervical exam deferred FHR:baseline 135/ + accels/ no decels/ moderate variability UCs: Q4 minutes, lasting 2 minutes Temp: 99.0 BP: 133/65 Assessment: No evidence of chorioamnionitis or acidemia. Appears more relaxed with nitrous oxide. Plan: Recheck cervix in 30 minutes to 1 hour if no strong urge to push prior. Consider epidural/ Pitocin augmentation as needed.
--- NOTE | 2019-10-15 01:43 | PN ---
Progress Note - Progress Note Date of Service: 10/15/19 SOAP: Subjective: Pt feeling strong urge to push Objective: Cervix: Anterior lip/ 100%/ +1 UCs: 4 minutes FHR: 145 per doppler Assessment: Pt making good progress. No evidence of acidemia or chorioamnionitis. Plan: Encourage upright positions. Can bear down spontaneously. Anticipate
[2019-10-15] MEDS ORDERED: Oxytocin in LR* 20 UNITS/1,000 ML BAG IVPB ONE (04:01)
[2019-10-15] MEDS: Penicillin G Potassium IV* 3,000,000 UNITS in NS 0.9% 100 ML* 100 ML IVPB SCH (04:11)
[2019-10-15] MEDS ORDERED: OBEPIDURAL* 250 ML EPIDURAL ONE (06:11)
[2019-10-15 06:13] LABS: ABS Lymphocytes 0.8 10^3/ul (1.0-4.8); ABS Monocytes 0.8 10^3/ul (0-0.8); ABS Neutrophils 9.6 10^3/ul (1.5-7.7); Hematocrit 36 % (35-47); Hemoglobin 12.8 g/dL (12.0-16.0); Lymphocyte % 7.1 %; Mean Corpuscular HGB Conc 36 g/dL (31-36); Mean Corpuscular Hemoglobin 34 pg (27-31); Mean Corpuscular Volume 96 fL (80-97); Mean Platelet Volume 10.3 fL (7.4-10.4); Platelet Count 121 10^3/uL (150-450); Red Blood Count 3.76 10^6 /uL (3.70-4.87); Red Cell Distribution Width 13 % (10-15); White Blood Count 11.2 10^3/uL (3.5-10.8)
--- NOTE | 2019-10-15 06:21 | PN ---
Progress Note - Progress Note Date of Service: 10/15/19 SOAP: Subjective: Pt has been pushing now for about three hours. Pushes with fairly good effort, and has had some descent, but baby still not at introitus. Pt fatigued. Objective: FHR: Baseline 155/ moderate variability/ no accels/ early and variable decels with ctx. UCs: 2-3 minutes BP: 133/76 Temp: 98.7 Assessment: FHR Category II. Potential for arrest of descent. Plan: Discussed options with pt, including requesting Dr. Florian to evaluate for possible vacuum extractor or delivery, or getting an epidural and laboring down. Pt with strong preference to avoid . Requests to labor down with epidural. Consulted with Dr. Florian, who expresses concerns regarding a with baby deep in pelvis. Will discuss these concerns with pt and family.
[2019-10-15] MEDS ORDERED: Phenylephrine 40 MCG/ML SYRINGE ONE (06:39)
--- NOTE | 2019-10-15 06:43 | PN ---
Progress Note - Progress Note Date of Service: 10/15/19 Note: Spoke with pt, and pt's mother. Advised them that I spoke with Dr. Florian and he expressed concerns regarding increased risks of where baby is deep in canal. Advised that risks include increased physical trauma, bleeding, injury to mother and baby. Pt, and pt's mother discussed options at length. Pt elects to proceed with epidural placement. Discussed situation with Dr. Moody as well. He states that he feels it may be beneficial to have epidural in place if becomes necessary, and support plan of placing epidural. Dr. Moody at bedside at this time for epidural placement.
[2019-10-15] MEDS ORDERED: Lactated Ringers 1000 ML Bag* 1,000 ML IV ONE (07:24)
[2019-10-15] MEDS ORDERED: Famotidine TAB* 20 MG PO PRN (07:24)
[2019-10-15] MEDS ORDERED: EPHEDrine (Pressors)* 50 MG/ML VIAL IV PUSH PRN ×2 (07:24)
[2019-10-15] MEDS ORDERED: Phenylephrine 40 MCG/ML SYRINGE IV PUSH PRN ×2 (07:24)
[2019-10-15] MEDS ORDERED: Lactated Ringers 1000 ML Bag* 500 ML IV PRN ×2 (07:24)
[2019-10-15] MEDS ORDERED: Sodium Citrate/Citric Acid* 15 ML UDC PO PRN (07:24)
--- NOTE | 2019-10-15 07:35 | PN ---
Progress Note - Progress Note Date of Service: 10/15/19 SOAP: Subjective: Pt sleeping comfortably following epidural placement. and parents at bedside. Objective: FHR: Baseline 150/ moderate variability/ no accels/ no decels UCs: BP: 124/66 Temp: 98.8 Assessment: Pt comfortable, Category I FHR, possible arrest of descent. Plan: Allow pt to sleep. Side to side with peanut ball. Restart Pitocin as needed.
[2019-10-15] MEDS ORDERED: OBEPIDURAL* 250 ML EPIDURAL SCH (08:00)
[2019-10-15] MEDS ORDERED: Lactated Ringers 1000 ML Bag* 1,000 ML IV SCH ×2 (08:00→13:00)
[2019-10-15] MEDS ORDERED: Dibucaine 1% 28.35 GM TUBE ONE (11:32)
[2019-10-15] MEDS ORDERED: Lidocaine 1% INJ* 10 MG/ML 30 ML SDV ONE (11:32)
[2019-10-15] MEDS ORDERED: Methylergonovine INJ* 0.2 MG/ML 1ML AMP ONE (11:33)
[2019-10-15] MEDS ORDERED: Witch Hazel PAD* JAR ONE (11:33)
[2019-10-15] MEDS ORDERED: Acetaminophen TAB* 325 MG PO PRN (12:01)
[2019-10-15] MEDS ORDERED: Glycerin ADULT SUPP PR PRN (12:01)
[2019-10-15] MEDS ORDERED: Methylergonovine INJ* 0.2 MG/ML 1ML AMP IM ONE (12:01)
[2019-10-15] MEDS ORDERED: Witch Hazel PAD* JAR TOPICAL PRN (12:01)
[2019-10-15] MEDS ORDERED: Oxytocin in LR* 20 UNITS/1,000 ML BAG IVPB SCH (13:00)
[2019-10-15] MEDS: Docusate CAP* 100 MG PO SCH ×2 (15:45→20:54)
[2019-10-15] MEDS: Ibuprofen TAB* 600 MG PO PRN ×2 (17:11→23:55)
[2019-10-15] MEDS: Dibucaine 1% 28.35 GM TUBE PR PRN (17:11)
--- NOTE | 2019-10-15 19:05 | PROCNOTE ---
[facility] OB: Delivery Note - Delivery A Date of : 10/15/19 Time of : 11:08 [place] Sex: Female Weight at : 3.305 kg Score 1 Minute: 9 Score 5 Minutes: 9 Gestational Age in Weeks and Days at Delivery: 41 Weeks and 4 Days Delivery Method: Spontaneous Vaginal Labor: Spontaneous Did Patient attempt ?: N/A, No Previous Amniotic Fluid: Meconium Estimated Blood Loss: 500 Anesthesia/Analgesia: CEI for Labor Delivered By: Teresita Wang - Nursery Level of Nursery: Regular/Bedside - Perineum Perineal Injury: 2nd Degree Perineal Repair: By Delivering Practioner - Events Delivery Events of Note: Pitocin During Labor, Protracted/Long Labor, Full Course of Antibiotics, Post- Bleeding - Meds Given, Pushed > 3 Hours, ROM > 24 Hours Delivery Events of Note Comment: see above - Additional Delivery Notes Additional Delivery Notes: Pt admitted to L&D with ruptured membranes in early labor. Declined augmentation. Eventually AROM of forebag led to onset active labor. Pt made steady progress to full dilation and spontaneous pushing efforts. While pushing EFM Category II. Pushing progress was slow. After three hours with steady but very slow descent, pt offered option of vs consult with Dr. Florian for possible vacuum assisted delivery. Pt declined these options and was then offered the option of getting an epidural, laboring down and sleeping and then trying pushing again. Pt decided to try epidural. She slept soundly for several hours, and eventually began to feel urge to push. Pt pushed with slow but steady descent, eventually bringing to . Head delivered OA to SEGUNDO , shoulders followed without difficulty. with vigorous cry, placed on maternal abdomen, dried and stimulated. After pulsation ceased cord clamped x2 and cut by 's father. Placenta soon delivered spontaneously, kyle side. Fundus firm to massage, but became boggy. Pitocin administered via IV and soon after administered methergine IM with good control of bleeding. Infant and mother stable at this time. Anticipate normal course.
[2019-10-16 05:49] LABS: ABS Lymphocytes 1.6 10^3/ul (1.0-4.8); ABS Monocytes 0.9 10^3/ul (0-0.8); ABS Neutrophils 7.6 10^3/ul (1.5-7.7); Eosinophil % 0.3 %; Hematocrit 23 % (35-47); Lymphocyte % 15.5 %; Mean Corpuscular HGB Conc 36 g/dL (31-36); Mean Corpuscular Hemoglobin 34 pg (27-31); Mean Corpuscular Volume 96 fL (80-97); Mean Platelet Volume 9.9 fL (7.4-10.4); Nucleated Red Blood Cells % 0.1; Platelet Count 91 10^3/uL (150-450); Red Blood Count 2.35 10^6 /uL (3.70-4.87); Red Cell Distribution Width 13 % (10-15)
[2019-10-16] MEDS: Docusate CAP* 100 MG PO SCH ×3 (08:09→20:11)
[2019-10-16] MEDS: Ferrous Gluconate TAB* 324 MG TAB PO SCH ×2 (08:09→20:11)
[2019-10-16] MEDS: Dibucaine 1% 28.35 GM TUBE PR PRN (08:09)
[2019-10-16] MEDS: Ibuprofen TAB* 600 MG PO PRN ×3 (08:09→20:11)
[2019-10-17] MEDS: Ibuprofen TAB* 600 MG PO PRN (08:37)
[2019-10-17] MEDS: Docusate CAP* 100 MG PO SCH (08:38)
[2019-10-17 09:01] VITALS: BP 121/81
[2019-10-17] MEDS: Ferrous Gluconate TAB* 324 MG TAB PO SCH (12:06)
== END 2019-10-17 12:54 | disposition home or self-care (01) | DRG 806 ==
LOC: MCHOBOUT 00:56 → MCHOB 01:54
PROVIDERS: ADMIT Midwife; ATTEND Midwife
PROC: 10E0XZZ Delivery of Products of Conception, External Approach (ICD-10-PCS; principal; 2019-10-15)
PROC: 0KQM0ZZ Repair Perineum Muscle, Open Approach (ICD-10-PCS; 2019-10-15)
PROC: 10907ZC Drainage of Amniotic Fluid, Therapeutic from Products of Conception, Via Natural or Artificial Opening (ICD-10-PCS; 2019-10-15)
DX: O48.0 Post-term pregnancy (principal); O72.1 Other immediate postpartum hemorrhage; Z37.0 Single live birth; O99.344 Other mental disorders complicating childbirth; F41.9 Anxiety disorder, unspecified; O99.824 Streptococcus B carrier state complicating childbirth; O70.1 Second degree perineal laceration during delivery; O77.0 Labor and delivery complicated by meconium in amniotic fluid; O76 Abnormality in fetal heart rate and rhythm complicating labor and delivery; O90.81 Anemia of the puerperium; D64.89 Other specified anemias; Z3A.41 41 weeks gestation of pregnancy
CPT/HCPCS: 36415; 80053; 80307; 81003; 81015; 84550; 85025; 85060; 86850; 86900; 86901; 87086; 87340; A9270-GY; J2210; J2300; J2540; J2550